=== PATIENT | male | born 1950 | race Caucasian/White ===

== ENCOUNTER 2018-08-25 12:41 | Emergency (ER) | payer BC ==
[~2018-08-25] VITALS: Ht 167.6 cm; Wt 72.0 kg
[2018-08-25 12:45] VITALS: BP 161/102; PULSE 102; RESP 20; Ht 167.6 cm; Wt 72.0 kg
[2018-08-25] MEDS ORDERED: HYDROCODONE/APAP (5/325) TAB PO ONE (15:00)
[2018-08-25] MEDS ORDERED: HYDR-4011 PO (15:46)
--- NOTE | 2018-08-25 20:14 | ERD ---
ER Documentation Chief Complaint Chief Complaint Complains of back pain after a fall yesterday HPI 67-year-old male presents for back pain status post fall yesterday. States that he was on the second step of a stepping stool and fell off. He fell onto his right side. He had to sit on the floor. The pain is noted to be in the right mid back, rib area. Denies loss of consciousness or vomiting afterwards. Patient does not feel that he is confused. Took Motrin at home for pain. No other complaints per ROS All systems reviewed and are negative except as per history of present illness. Medications Home Meds Active Scripts Hydrocodone/Acetaminophen ([place] 5-325 Tablet) 1 Each Tablet, 1 EACH PO Q6H PRN for PAIN, #10 TAB Prov:RAJIV MONTALVO DO 08/25/18 Allergies Allergies: Coded Allergies: Penicillins (Verified Allergy, Intermediate, 08/25/18) lisinopril (Verified Allergy, Intermediate, 08/25/18) PMhx/Soc Medical and Surgical Hx: pt denies Medical Hx, pt denies Surgical Hx Hx Alcohol Use: No Hx Substance Use: No Hx Tobacco Use: No Smoking Status: Never smoker Physical Exam Vitals Vital Signs Date Temp Pulse Resp B/P (MAP) Pulse Ox O2 O2 Flow FiO2 Time Delivery Rate 08/25/18 98.8 102 20 161/102 97 12:45 (121) Physical Exam Physical Exam Const: No acute distress Resp: Clear to auscultation bilaterally Cardio: Regular rate and rhythm, no murmurs Abd: Soft, non tender, non distended. Normal bowel sounds Skin: No petechiae or rashes Back: Right posterior rib tenderness to palpation. Ext: No cyanosis, or edema Neur: Awake and alert Psych: Normal Mood and Affect Results 24 hrs Current Medications Medications Dose Sig/Srinivasan Start Time Status Last (Trade) Ordered Route PRN Stop Time Admin Dose Reason Admin 1 tab ONCE ONCE 08/25/18 DC 08/25/18 Acetaminophen PO 15:00 14:43 / 08/25/18 15:01 Hydrocodone Bitart ([place] (5/325)) Procedures/MDM Medical Decision Making: Differential diagnosis includes but not limited to fracture, dislocation, muscle strain, sprain Patient appeared well on physical exam. There was right posterior rib tenderness palpation X-ray showed Nondisplaced fractures of the right posterior eighth and ninth ribs. ED course: Patient was given [place]. Symptoms improved with treatment. Prescription(s): Patient given prescription for [place] short course low-dose Patient advised to continue with Motrin and Flexeril which she has at home. Patient advised to follow up with PCP in 1-2 days. Patient advised to return to ED for new or worsening symptoms. Patient stable on discharge from the ED. The patient has been prescribed [place] during this encounter. The patient has been warned about the use of narcotics. The patient should not drive or operate heavy machinery while taking this medication. The patient was also warned about the addictive properties of narcotic medications. [Narcan prescription was NOT provided given the following criteria 1. No more than 5 tablets of [place] 10 mg or 10 tablets of [place] 5 mg were prescribed. 2. Concomitant opiate and benzodiazepine prescriptions were not provided. 3. There is no obvious evidence of prior history of opiate abuse or overdose.] Disclaimer: Inadvertent spelling and grammatical errors are likely due to EHR/dictation software use and do not reflect on the overall quality of patient care. Also, please note that the electronic time recorded on this note does not necessarily reflect the actual time of the patient encounter. Departure Diagnosis: Primary Impression: Rib fracture Encounter type: initial encounter Rib fracture type: multiple ribs Fracture type: closed Laterality: right Qualified Codes: S22.41XA - Multiple fractures of ribs, right side, initial encounter for closed fracture Condition: Fair Patient Instructions: Rib Fracture (Broken Rib) Ref[facility]: [facility] YOU HAVE RECEIVED A MEDICAL SCREENING EXAM AND THE RESULTS INDICATE THAT YOU DO NOT HAVE A CONDITION THAT REQUIRES URGENT TREATMENT IN THE EMERGENCY DEPARTMENT. FURTHER EVALUATION AND TREATMENT OF YOUR CONDITION CAN WAIT UNTIL YOU ARE SEEN IN YOUR DOCTORS OFFICE WITHIN THE NEXT 1-2 DAYS. IT IS YOUR RESPONSIBILITY TO MAKE AN APPOINTMENT FOR FOLOW-UP CARE. IF YOU HAVE A PRIMARY DOCTOR --you should call your primary doctor and schedule an appointment IF YOU DO NOT HAVE A PRIMARY DOCTOR YOU CAN CALL OUR PHYSICIAN REFERRAL HOTLINE AT IF YOU CAN NOT AFFORD TO SEE A PHYSICIAN YOU CAN CHOSE FROM THE FOLLOWING [facility] [address] [facility]. [facility] [address] [facility] [address] [facility]. [facility] [address] [facility]. [facility] [address] [facility]. [facility] [address] Additional Instructions: Call your primary care doctor TOMORROW for an appointment during the next 1-2 days.See the doctor sooner or return here if your condition worsens before your appointment time. RAJIV MONTALVO DO Aug 25, 2018 20:14
== END 2018-08-25 16:09 | disposition home or self-care (01) ==
LOC: FTE 12:41
DX: S22.41XA Multiple fractures of ribs, right side, initial encounter for closed fracture (principal); W19.XXXA Unspecified fall, initial encounter; Y92.9 Unspecified place or not applicable
CPT/HCPCS: 71100